=== PATIENT | female | born 1975 | race African-American/Black ===

== ENCOUNTER → 2016-07-12 | Outpatient (CLI) | payer OTHER ==
[2016-07-12 10:41] LABS: CHLORIDE,CL 108 mmol/L (98-110); SODIUM,NA 140 mmol/L (136-146)
== END ==
LOC: MW.CHFP 09:40
PROVIDERS: ATTEND Nurse Practitioner Family
DX: Z00.00 Encounter for general adult medical examination without abnormal findings (principal); E11.9 Type 2 diabetes mellitus without complications; R80.9 Proteinuria, unspecified
CPT/HCPCS: 36415; 80053; 80061; 82044; 83036

== ENCOUNTER 2018-07-07 08:10 | Day surgery (SDC) | payer OTHER ==
[~2018-07-07 08:10] MED LIST: Lactated Ringers 1,000 ML IV SCH
--- NOTE | 2018-07-07 09:21 | PCM.PREANE ---
Preanesthetic Assessment - Anesthesia/Transfusion/Family Hx Anesthesia History: Prior Anesthesia Without Reaction Family History of Anesthesia Reaction: No Transfusion History: No Prior Transfusion(s) Intubation History: Unknown - Review of Systems General: No Symptoms Pulmonary: No Symptoms Cardiovascular: No Symptoms Gastrointestinal: Abdominal Pain Neurological: No Symptoms Other: Reports: None - Physical Assessment NPO Status Date: 07/06/18 O2 Sat by Pulse Oximetry: 97 Respiratory Rate: 18 Vital Signs: Last Vital Signs Temp 35.9 C 07/07/18 08:35 Pulse 110 H 07/07/18 08:35 Resp 18 07/07/18 08:35 BP 131/77 07/07/18 08:35 Pulse Ox 97 07/07/18 08:35 Height: 1.5 m Weight: 95.708 kg ASA Class: 3 Mental Status: Alert & Oriented x3 Airway Class: Mallampati = 2 Dentition: Reports: Normal Dentition Thyro-Mental Finger Breadths: 3 Mouth Opening Finger Breadths: 3 ROM/Head Extension: Full Lungs: Clear to Auscultation, Normal Respiratory Effort Cardiovascular: Regular Rate, Regular Rhythm - Lab Values: Laboratory Last Values Urine HCG, Qual NEGATIVE (NEGATIVE) 07/07/18 08:35 - Allergies Allergies/Adverse Reactions: Allergies Allergy/AdvReac Type Severity Reaction Status Date / Time chocolate flavor Allergy Airway Verified 07/04/18 13:18 Tightness Penicillins Allergy Other Verified 07/04/18 13:18 red pepper Allergy Airway Uncoded 07/04/18 13:18 Tightness - Blood Blood Available: No - Anesthesia Plan Pre-Op Medication Ordered: None - Acknowledgements Anesthesia Type Planned: MAC Pt an Appropriate Candidate for the Planned Anesthesia: Yes Alternatives and Risks of Anesthesia Discussed w Pt/Guardian: Yes Pt/Guardian Understands and Agrees with Anesthesia Plan: Yes PreAnesthesia Questionnaire HEENT History: Reports: Allergic Rhinitis, Other (See Below) Other HEENT History: uses glasses for driving Cardiovascular History: Reports: Hypertension Gastrointestinal History: Reports: GERD Genitourinary History: Reports: Renal Calculus 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: Neurological History: Reports: Concussion Endocrine/Metabolic History: Reports: Diabetes, Type II, IDDM, Obesity/BMI 30+ - Past Surgical History HEENT Surgical History: Reports: Adenoidectomy, Naso-Sinus Surgery, Tonsillectomy Female Surgical History: Reports: Section Musculoskeletal Surgical History: Reports: Arthroscopic Knee (right knee) - SUBSTANCE USE Smoking Status *Q: Never Smoker Recreational Drug Use History: No - HOME MEDS Home Medications: Home Meds Azelastine HCl 1 spray NASBOTH QPM 07/04/18 [History] Diclofenac Sodium [Voltaren] 75 mg PO ASDIRECTED PRN 07/04/18 [History] Fluticasone Propionate [Flonase Allergy Relief] 1 spray NASBOTH QAM 07/04/18 [ History] Insulin Detemir [Levemir Flextouch] 30 unit SQ BEDTIME 07/04/18 [History] Losartan/Hydrochlorothiazide [Losartan-HCTZ 100-12.5 MG] 1 tab PO QAM 07/04/18 [ History] SitaGLIPtin [Januvia] 100 mg PO QAM 07/04/18 [History] metFORMIN [Glucophage] 500 mg PO BIDMEALS 07/04/18 [History] - CURRENT (IN HOUSE) MEDS Current Meds: Current Medications Lactated Ringer's (Ringers, Lactated) 1,000 mls @ 125 mls/hr IV ASDIRECTED JIMI Last Admin: 07/07/18 08:45 Dose: 125 mls/hr
[2018-07-07] MEDS ORDERED: Ondansetron 4 MG/2 ML SDV ONE (11:36)
[2018-07-07] MEDS ORDERED: Propofol 200 MG/20 ML SDV ONE (11:36)
[2018-07-07] MEDS ORDERED: fentaNYL 100 MCG/2 ML SDV ONE (11:37)
[2018-07-07] MEDS ORDERED: Midazolam 1 MG/ML 2 ML SDV ONE (11:37)
--- NOTE | 2018-07-07 11:58 | PCM.OPNOTE ---
- General Post-Op/Procedure Note Date of Surgery/Procedure: 07/07/18 Operative Procedure(s): egd w bx Findings: see dict [id number] Pre Op Diagnosis: gerd Post-Op Diagnosis: Same Anesthesia Technique: Moderate Sedation Primary Surgeon: Kasi Gupta Pathology: sent Complications: None Condition: Good
--- NOTE | 2018-07-07 12:38 | PCM.POSTAN ---
POST ANESTHESIA ASSESSMENT - MENTAL STATUS Mental Status: Alert, Oriented - RESPIRATORY Respiratory Status: Respiratory Rate WNL, Airway Patent, O2 Saturation Stable - CARDIOVASCULAR CV Status: Pulse Rate WNL, Blood Pressure Stable - GASTROINTESTINAL GI Status: No Symptoms - PAIN Pain Score: 0 - POST OP HYDRATION Hydration Status: Adequate & Stable - OBSERVATIONS Free Text/Narrative:: no anesthesia problems, patient skipped recovery room phase of postoperative care
--- NOTE | 2018-07-07 15:31 | OR ---
SURGEON: Kasi Gupta MD DATE OF PROCEDURE: 07/07/2018 PREOPERATIVE DIAGNOSIS: Gastroesophageal reflux disease. POSTOPERATIVE DIAGNOSIS: Gastroesophageal reflux disease. PROCEDURE PERFORMED: Esophagogastroduodenoscopy with biopsy. COMPLICATION: None. PROCEDURE IN DETAIL: EGD: The patient was taken to the endoscopy room, and with the MANUFACTURING PROJECT ENGINEER, Diprivan was administered. A well-lubricated EGD scope was gently inserted through the oropharynx, down the esophagus, passing through the gastroesophageal junction, into the stomach. The mucosa was examined upon the passage. Any etiology will be noted. Once in the stomach, we continued to advance to the distal antrum, passed through the pylorus into the second portion of the duodenum. Again, the mucosa was examined for any abnormality and etiology. The scope was then retrieved back to the stomach and then retroflexed to look at the fundus of the stomach. If a biopsy was indicated, we will biopsy the antrum, body, and gastroesophageal junction. The air will be sucked out while the scope is retrieved to reduce the patient's discomfort. The patient tolerated the procedure well. There were no intraoperative complications. Dr. Gupta was present through the whole procedure. Prior to surgery, a time-out had been called, the patient identified, procedure identified and antibiotic administered. FINDINGS: 1. The patient is easily sedated with MANUFACTURING PROJECT ENGINEER and Diprivan. The patient is soundly snoring. 2. Oropharynx and proximal esophagus are free of disease. No inflammation, stricture, ulceration, or varicosity. Distal esophagus shows flame-like salmon-colored change consistent with moderate amount of GERD, and stomach rugae is normal in appearance. There is quite a few food particle, I mean it is not solid food, but there is food particle and food residual in the stomach and consistent with some degree of gastroparesis. Antrum was mildly inflamed. Duodenum was grossly normal, but with a patch of white color such as possible food after midnight. Retroflexed look at the fundus of stomach, there is no hiatal hernia. Biopsy done at antrum, body, GE junction at 40 and sucked out the gas while scope pulling out. CARLOS / BALDO /[id number]
== END 2018-07-07 12:38 | disposition home or self-care (01) ==
LOC: MW.SDS 08:10
PROVIDERS: ATTEND Surgery
DX: K29.00 Acute gastritis without bleeding (principal); K29.50 Unspecified chronic gastritis without bleeding; K20.9 Esophagitis, unspecified; K21.9 Gastro-esophageal reflux disease without esophagitis; I10 Essential (primary) hypertension; E11.9 Type 2 diabetes mellitus without complications; M17.11 Unilateral primary osteoarthritis, right knee; E66.9 Obesity, unspecified; Z68.41 Body mass index [BMI] 40.0-44.9, adult; Z88.0 Allergy status to penicillin; Z91.018 Allergy to other foods; Z91.02 Food additives allergy status; Z79.51 Long term (current) use of inhaled steroids; Z79.4 Long term (current) use of insulin; Z79.899 Other long term (current) drug therapy
CPT/HCPCS: 43239; 81025; 82962; J2001; J2250; J2405; J2704; J3010; J7120; 88305; 88312

== ENCOUNTER 2018-09-08 06:21 | Day surgery (SDC) | payer OTHER ==
[2018-09-08] MEDS ORDERED: fentaNYL 100 MCG/2 ML SDV ONE (07:01)
[2018-09-08] MEDS ORDERED: Propofol 200 MG/20 ML SDV ONE ×2 (07:01→08:14)
[2018-09-08] MEDS ORDERED: Midazolam 1 MG/ML 2 ML SDV ONE (07:01)
--- NOTE | 2018-09-08 07:01 | PCM.PREANE ---
Preanesthetic Assessment - Anesthesia/Transfusion/Family Hx Anesthesia History: Prior Anesthesia Without Reaction Family History of Anesthesia Reaction: No Transfusion History: No Prior Transfusion(s) Intubation History: Unknown - Review of Systems General: No Symptoms Pulmonary: No Symptoms Cardiovascular: No Symptoms Gastrointestinal: No Symptoms, Other (recent h/o H. pylori, screening colonoscopy) Neurological: No Symptoms Other: Reports: None - Physical Assessment O2 Sat by Pulse Oximetry: 97 Respiratory Rate: 18 Vital Signs: Last Vital Signs Temp 36.1 C 09/08/18 06:35 Pulse 107 H 09/08/18 06:35 Resp 18 09/08/18 06:35 BP 143/93 H 09/08/18 06:35 Pulse Ox 97 09/08/18 06:35 Height: 1.5 m Weight: 94.801 kg ASA Class: 2 Mental Status: Alert & Oriented x3 Airway Class: Mallampati = 2 Dentition: Reports: Normal Dentition Thyro-Mental Finger Breadths: 3 Mouth Opening Finger Breadths: 3 ROM/Head Extension: Full Lungs: Clear to Auscultation, Normal Respiratory Effort Cardiovascular: Regular Rate, Regular Rhythm - Lab Values: Laboratory Last Values POC Glucose 163 mg/dL (60-110) H 09/08/18 06:44 Urine HCG, Qual NEGATIVE (NEGATIVE) 09/08/18 06:28 - Allergies Allergies/Adverse Reactions: Allergies Allergy/AdvReac Type Severity Reaction Status Date / Time chocolate flavor Allergy Airway Verified 09/04/18 16:41 Tightness Penicillins Allergy Other Verified 09/04/18 16:41 red pepper Allergy Airway Uncoded 09/04/18 16:41 Tightness - Blood Blood Available: No - Anesthesia Plan Pre-Op Medication Ordered: None - Acknowledgements Anesthesia Type Planned: MAC Pt an Appropriate Candidate for the Planned Anesthesia: Yes Alternatives and Risks of Anesthesia Discussed w Pt/Guardian: Yes Pt/Guardian Understands and Agrees with Anesthesia Plan: Yes PreAnesthesia Questionnaire HEENT History: Reports: Other (See Below) Other HEENT History: wears glasses Cardiovascular History: Reports: Hypertension Respiratory History: Reports: TB (h/o TB in middle school) Gastrointestinal History: Reports: GERD, Helicobacter Pylori Genitourinary History: Reports: Renal Calculus 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: Reports: Endometriosis, Neurological History: Reports: Concussion Endocrine/Metabolic History: Reports: Diabetes, Type II (A1C is 7.5 according to the patient, glucose level today 165), IDDM, Obesity/BMI 30+ - Past Surgical History HEENT Surgical History: Reports: Adenoidectomy, Tonsillectomy GI Surgical History: Reports: EGD Female Surgical History: Reports: Section Musculoskeletal Surgical History: Reports: Arthroscopic Knee - SUBSTANCE USE Smoking Status *Q: Never Smoker Recreational Drug Use History: No - HOME MEDS Home Medications: Home Meds Azelastine HCl 1 spray NASBOTH BID 07/04/18 [History] Diclofenac Sodium [Voltaren] 75 mg PO ASDIRECTED PRN 07/04/18 [History] Insulin Detemir [Levemir Flextouch] 30 unit SQ BEDTIME 07/04/18 [History] metFORMIN [Glucophage] 500 mg PO BIDMEALS 07/04/18 [History] EPINEPHrine [Epipen] 0.3 mg IM ASDIRECTED PRN 09/04/18 [History] Fluticasone Propionate [Flonase Allergy Relief] 1 spray NASBOTH ASDIRECTED 09/04 [History] Losartan/Hydrochlorothiazide [Losartan-HCTZ 50-12.5 MG] 1 tab PO QAM 09/04/18 [ History] Norgestrel-Ethinyl Estradiol [Elinest-28 Tablet] 1 tab PO DAILY 09/04/18 [ History] Ozempic 0.5 mg SQ WEEKLY 09/04/18 [History] - CURRENT (IN HOUSE) MEDS Current Meds: Current Medications Lactated Ringer's (Ringers, Lactated) 1,000 mls @ 125 mls/hr IV ASDIRECTED JIMI Last Admin: 09/08/18 06:45 Dose: 125 mls/hr
--- NOTE | 2018-09-08 08:40 | PCM.OPNOTE ---
- General Post-Op/Procedure Note Date of Surgery/Procedure: 09/08/18 Operative Procedure(s): colonoscopy Findings: see dict [id number] Pre Op Diagnosis: scrn colonoscopy Post-Op Diagnosis: diverticulosis Primary Surgeon: Kasi Gupta Complications: None Condition: Good
--- NOTE | 2018-09-08 11:22 | OR ---
SURGEON: Kasi Gupta MD DATE OF PROCEDURE: 09/08/2018 PREOPERATIVE DIAGNOSIS: Screening colonoscopy. POSTOPERATIVE DIAGNOSIS: Diverticulosis. PROCEDURE PERFORMED: Colonoscopy. DESCRIPTION OF PROCEDURE: The patient was taken to the endoscopy room. A time out was called, patient identified, and procedure identified. Diprivan was then administrated. Patient went from awake to sleep, hearing doctor talking or door closing is normal. Perineum inspection and digital examination were then performed. A well- lubricated colonoscope was gently inserted through the rectum, advanced past the rectosigmoid junction, the descending colon, splenic flexure, transverse colon, hepatic flexure, ascending colon, arrived to the cecum. Cecum was identified as dictated in the finding. Then the scope was carefully withdrawn while attention was paid to the mucosal surface for any abnormality. Air will be sucked out during the scope withdrawal. At the rectum, retroflexed to examine any rectal diseases, fistula or hemorrhoids. Patient tolerated procedure well. There were no intraoperative complications, and Dr. Gupta was present throughout the whole procedure. FINDINGS: 1. The patient easily sedated with SALES OFFICE ASSISTANT and Diprivan, the patient is soundly snoring. 2. Bowel prep is excellent, absolutely not a speck of liquid stool or anything at all. Did a very good job in bowel prep. 3. Colon was a little bit redundant on the left, on the sigmoid colon, requiring several maneuvers in order to get to the cecum. Cecum indicated by ileocecal fold, appendiceal orifice, and one-to-one indentation. Light immittance is not observed. Mucosa was irrigated every now and then to look at the colon. Very little irrigation, and while the scope pulling out, mucosa examined. The patient has mild diverticulosis on the right colon, right around the cecum area, just a few of them. No signs or symptoms of diverticulitis, polyp, mass, growth, inflammation, AV malformation, bleeding, none of those. The patient has mild external hemorrhoid and mild internal hemorrhoid. The patient would benefit from repeat colonoscopy in 10 years from today or if clinically indicated otherwise. CARLOS / BALDO /[id number]
== END 2018-09-08 09:20 | disposition home or self-care (01) ==
LOC: MW.SDS 06:21
PROVIDERS: ATTEND Surgery
DX: Z12.11 Encounter for screening for malignant neoplasm of colon (principal); K57.30 Diverticulosis of large intestine without perforation or abscess without bleeding; R63.4 Abnormal weight loss; Z68.41 Body mass index [BMI] 40.0-44.9, adult; I10 Essential (primary) hypertension; K21.9 Gastro-esophageal reflux disease without esophagitis; E11.9 Type 2 diabetes mellitus without complications; Z88.0 Allergy status to penicillin; Z91.018 Allergy to other foods; Z79.1 Long term (current) use of non-steroidal anti-inflammatories (NSAID); Z79.3 Long term (current) use of hormonal contraceptives; Z79.4 Long term (current) use of insulin; Z79.51 Long term (current) use of inhaled steroids; Z79.899 Other long term (current) drug therapy
CPT/HCPCS: 45378; 81025; 82962; J2250; J2704; J3010; J7120; 00812

== ENCOUNTER 2019-01-12 12:45 | Emergency (ER) | payer OTHER ==
[2019-01-12] MEDS ORDERED: Ondansetron 4 MG Tab.DIS PO ONE (13:09)
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
== END 2019-01-12 15:00 | disposition home or self-care (01) ==
LOC: MW.ED 12:45
DX: M54.2 Cervicalgia (principal); M54.5 Low back pain; I10 Essential (primary) hypertension; E11.9 Type 2 diabetes mellitus without complications; E66.9 Obesity, unspecified; Z68.41 Body mass index [BMI] 40.0-44.9, adult; Z88.0 Allergy status to penicillin; Z91.018 Allergy to other foods; Z79.84 Long term (current) use of oral hypoglycemic drugs; Z79.899 Other long term (current) drug therapy; V49.59XA Passenger injured in collision with other motor vehicles in traffic accident, initial encounter
CPT/HCPCS: 72040; 72100; 96372; 99284; A9270; J2360

== ENCOUNTER 2019-01-15 10:28 | Emergency (ER) | payer OTHER ==
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
[2019-01-15] MEDS ORDERED: Acetaminophen/HYDROcodone 325-5 MG Tab PO ONE (10:51)
[2019-01-15] MEDS ORDERED: Ondansetron 4 MG Tab.DIS PO ONE (10:51)
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
== END 2019-01-15 12:43 | disposition home or self-care (01) ==
LOC: MW.ED 10:28
DX: R51 Headache (principal); M79.10 Myalgia, unspecified site; I10 Essential (primary) hypertension; Z88.0 Allergy status to penicillin; Z88.9 Allergy status to unspecified drugs, medicaments and biological substances; Z79.899 Other long term (current) drug therapy; Z79.4 Long term (current) use of insulin; V89.2XXS Person injured in unspecified motor-vehicle accident, traffic, sequela
CPT/HCPCS: 70450; 99284; A9270; 99283

== ENCOUNTER 2019-09-13 08:15 | Day surgery (SDC) | payer OTHER ==
[~2019-09-13 08:15] MED LIST changes: +Bupivacaine 0.5% 30 ML SDV ONE; +Lidocaine 2% Jelly 30 ML Tube ONE; +Sodium Chloride 0.9% 10 ML SDV IV PRN; +Sodium Chloride 0.9% 10 ML Syringe FLUSH PRN; +Sodium Chloride 0.9% 2.5 ML Syringe FLUSH PRN; +cefOXitin 2 GM in Premix Bag 1 BAG IV ONE
[2019-09-13] MEDS ORDERED: fentaNYL 100 MCG/2 ML SDV ONE ×2 (08:44→09:50)
[2019-09-13] MEDS ORDERED: Midazolam 1 MG/ML 2 ML SDV ONE (08:44)
[2019-09-13] MEDS ORDERED: Propofol 200 MG/20 ML SDV ONE (08:44)
[2019-09-13] MEDS ORDERED: Lidocaine 2% 5 ML SDV ONE (08:44)
[2019-09-13] MEDS ORDERED: Albuterol 0.083% 2.5 MG/3 ML Neb Soln NEB PRN (08:55)
[2019-09-13] MEDS ORDERED: 50% Dextrose in Water 50 ML Syringe IVPUSH PRN (08:55)
[2019-09-13] MEDS ORDERED: fentaNYL 100 MCG/2 ML SDV IVPUSH PRN (08:55)
[2019-09-13] MEDS ORDERED: EPINEPHrine 1:10,000 1 MG/10 ML Syringe IVPUSH PRN (08:55)
[2019-09-13] MEDS ORDERED: Naloxone 0.4 MG/ML Syringe IVPUSH PRN (08:55)
[2019-09-13] MEDS ORDERED: Atropine 0.1 MG/ML 10 ML Syringe IVPUSH PRN ×2 (08:55)
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
[2019-09-13] MEDS ORDERED: cefOXitin 1 GM Vial ONE (09:48)
[2019-09-13] MEDS ORDERED: Sodium Chloride 0.9% 20 ML ONE (09:48)
[2019-09-13] MEDS ORDERED: 50% Dextrose in Water 50 ML Syringe ONE (09:52)
--- NOTE | 2019-09-13 10:27 | PCM.OPNOTE ---
- General Post-Op/Procedure Note Date of Surgery/Procedure: 09/13/19 Operative Procedure(s): Hemorrhoidectomy Findings: Right anterior grade 4 hemorrhoid Pre Op Diagnosis: Grade 4 hemorrhoids Post-Op Diagnosis: same Anesthesia Technique: Local, MAC Primary Surgeon: Jen Schwarz Fluid Replacement, Intraop: 1,000 EBL in mLs: 5 Condition: Good
--- NOTE | 2019-09-13 10:36 | PCM.POSTAN ---
POST ANESTHESIA ASSESSMENT - MENTAL STATUS Mental Status: Alert, Oriented - VITAL SIGNS Vital Signs: Last Vital Signs Temp 35.9 C L 09/13/19 10:20 Pulse 111 H 09/13/19 10:30 Resp 19 09/13/19 10:30 BP 121/75 09/13/19 10:30 Pulse Ox 94 L 09/13/19 10:30 - RESPIRATORY Respiratory Status: Respiratory Rate WNL, Airway Patent, O2 Saturation Stable - CARDIOVASCULAR CV Status: Pulse Rate WNL, Blood Pressure Stable - GASTROINTESTINAL GI Status: No Symptoms - PAIN Pain Score: 0 - POST OP HYDRATION Hydration Status: Adequate & Stable - OBSERVATIONS Free Text/Narrative:: No anesthesia problems
[2019-09-13] MEDS ORDERED: HYDROmorphone 2 MG/ML Syringe IVPUSH ONE (11:02)
[2019-09-13] MEDS ORDERED: Ketorolac 30 MG/ML SDV IVPUSH ONE (11:02)
--- NOTE | 2019-09-13 12:00 | PCM48HPAN ---
Post Anesthesia Note - EVALUATION WITHIN 48HRS OF ANESTHETIC Vital Signs in Normal Range: Yes Patient Participated in Evaluation: Yes Respiratory Function Stable: Yes Airway Patent: Yes Cardiovascular Function Stable: Yes Hydration Status Stable: Yes Pain Control Satisfactory: Yes Nausea and Vomiting Control Satisfactory: Yes Mental Status Recovered: Yes Vital Signs: Last Vital Signs Temp 36.2 C 09/13/19 10:35 Pulse 106 H 09/13/19 10:35 Resp 16 09/13/19 10:35 BP 117/68 09/13/19 10:35 Pulse Ox 98 09/13/19 10:35 - COMMENTS/OBSERVATIONS Free Text/Narrative:: No anesthesia problems
--- NOTE | 2019-09-13 18:02 | OR ---
SURGEON: JEN SCHWARZ MD DATE OF PROCEDURE: 09/13/2019 PREOPERATIVE DIAGNOSIS: Grade 4 hemorrhoid. POSTOPERATIVE DIAGNOSIS: Grade 4 hemorrhoid. PROCEDURE PERFORMED: Single column hemorrhoidectomy. PRIMARY SURGEON: Jen Schwarz MD ANESTHESIA: MAC, local. FLUIDS: 1000 mL of crystalloid. ESTIMATED BLOOD LOSS: 5 mL. FINDINGS: Right anterior grade 4 hemorrhoid. COMPLICATIONS: None. INDICATIONS: The patient is a 44-year-old female who presented to my clinic with a prolapsed and inflamed right anterior hemorrhoid. The decision was made to excise this. Due to COVID-19, the patient's case was slightly delayed. The hemorrhoidal tissue is no longer inflamed, but it is still prolapsed, and the patient desires excision. I explained the procedure, expected perioperative course, wound cares afterwards, and the risks to the patient. She verbalized understanding and wishes to proceed. PROCEDURE IN DETAIL: The patient was brought into the OR and placed on the OR table in a left lateral decubitus position. A time-out was completed verifying the patient's name, age, date of , allergies, and procedure to be performed. Monitored anesthesia care was induced. The patient was appropriately padded and secured to the table. The buttocks and anoderm were then prepped and draped in usual standard fashion. A digital rectal exam was performed. This exam revealed a grade 4 prolapsing right anterior hemorrhoid. The patient did have what appeared to be a grade 2 right posterior hemorrhoid as well. The decision was made to remove the grade 4 hemorrhoid only. A bivalve proctoscope was inserted into the anus. I inspected the remainder of the anoderm which all appeared normal. I anesthetized the anoderm circumferentially with 0.5% Marcaine plain. I then placed a bivalve proctoscope into the anal canal to expose my hemorrhoidal tissue. The right anterior hemorrhoidal column was elevated with a Lidia clamp and needle-tip cautery was used to excise this hemorrhoid from the surrounding tissue using limited directed cauterization. The hemorrhoid was then passed off the field and sent to pathology labeled as hemorrhoidal tissue. I then closed the mucosa in the anoderm with a running locking 2-0 chromic suture. This was transitioned to a simple stitch on the anoderm. The stitch was then brought back upon itself and tied within the anal canal. The area was then irrigated with normal saline. It appeared to be hemostatic. 4 x 4 fluffs and sterile underwear were then placed. All counts were complete and correct at the end of the case. The patient tolerated the procedure well and was taken to the PACU in stable condition. JACKIE BLAND /[id number]
== END 2019-09-13 13:30 | disposition home or self-care (01) ==
LOC: MW.SDS 08:15
PROVIDERS: ATTEND Surgery
DX: K64.3 Fourth degree hemorrhoids (principal); E11.9 Type 2 diabetes mellitus without complications; K21.9 Gastro-esophageal reflux disease without esophagitis; I10 Essential (primary) hypertension; F41.9 Anxiety disorder, unspecified; F32.9 Major depressive disorder, single episode, unspecified; E66.9 Obesity, unspecified; Z79.1 Long term (current) use of non-steroidal anti-inflammatories (NSAID); Z88.0 Allergy status to penicillin; Z79.899 Other long term (current) drug therapy; Z79.4 Long term (current) use of insulin; Z68.39 Body mass index [BMI] 39.0-39.9, adult; Z91.02 Food additives allergy status
CPT/HCPCS: 46255; 81025; 82962; J0694; J1885; J2001; J2250; J2704; J3010; J3490; J7120; 00902; 88304

== ENCOUNTER 2021-01-01 10:58 | Emergency (ER) | payer OTHER ==
--- NOTE | 2021-01-01 12:18 | EDM.PDOC ---
ED HPI GENERAL MEDICAL PROBLEM - General Chief Complaint: Lower Extremity Injury/Pain Stated Complaint: TRIP AND FALL Time Seen by Provider: 01/01/21 12:13 Source of Information: Reports: Patient History Limitations: Reports: No Limitations - History of Present Illness INITIAL COMMENTS - FREE TEXT/NARRATIVE: HISTORY AND PHYSICAL: History of present illness: Patient is a 45-year-old female who presents to the emergency room with complaints of right medial ankle pain and right lateral rib pain. She states she tripped and fell landing on her right side. Denies hitting her head or having any loss of consciousness. Offers no other bodily injury. Offers no systemic complaints. Review of systems: As per history of present illness and below otherwise all systems reviewed and negative. Past medical history: As per history of present illness and as reviewed below otherwise noncontributory. Surgical history: As per history of present illness and as reviewed below otherwise noncontributory. Social history: See social history for further information Family history: As per history of present illness and as reviewed below otherwise noncontributory. Physical exam: General: Well developed and well nourished. Alert and orientated x 3. Nontoxic in appearance and in no acute distress. Vital signs are stable and have been reviewed by me. Nursing notes were reviewed. HEENT: Atraumatic, nontender, normocephalic, pupils equal and reactive bilaterally, negative for conjunctival pallor or scleral icterus, mucous membranes moist, neck supple, nontender, trachea midline. No drooling or trismus noted. No meningeal signs. No hot potato voice noted. Lungs: Clear to auscultation bilaterally. No wheezes, rales, or rhonchi. Right lateral lower rib tenderness to palpation. Normal work of breathing, no accessory muscles used. Heart: S1S2, regular rate and rhythm without overt murmur, gallops, or rubs. No JVD. No peripheral edema Abdomen: Soft, nondistended, nontender. Pelvis: Stable nontender. C-spine/Back: No pinpoint vertebral tenderness upon palpation. No crepitus, step-offs or obvious deformities. Patient is ambulatory into the emergency room without difficulty or deficit. Able to rock back on heels and walk on toes. Denies any urinary or fecal incontinence. Denies any numbness, tingling or saddle paresthesia. No concerns of serious infection, fracture or cord compression, or cauda equina syndrome. Deep tendon reflexes brisk bilaterally. Skin: Intact, warm, dry. No lesions or rashes noted. Hematologic: No petechiae or purpra. Mucosa appropriate color and normal nail bed color and refill. Extremities: Moves all extremities per self without difficulty or deficits with the exception of increased pain with flexion and extension of the right ankle/ foot. Pain with palpation of the medial right malleolus. Strong pedal and pretibial pulses. Cap refill less than 3 seconds, negative for cords or calf pain. Neurovascular unremarkable. Neuro: Awake, alert, oriented. Cranial nerves II through XII unremarkable. Cerebellum unremarkable. Motor and sensory unremarkable throughout. Exam nonfocal. Psychiatric: Mood and affect are appropriate. Normal thought process. Answering questions appropriately. Please note that the patient was seen and evaluated during the 2019 SARS-CoV-2 novel coronavirus pandemic period. Community viral transmission is ongoing at time of this encounter and the emergency department is operating under pandemic response procedures. Medical Decision Making: Rib x-ray is unremarkable. Ankle x-ray shows and acute fracture of the medial malleolus with a small free bone fragment. No other osseous abnormality. Patient placed in a cam walker boot and crutches. I have talked with the patient about today's findings, in addition to providing specific details for plan of care. Reassessment at the time of disposition demonstrates that the patient is in no acute distress. Encourage patient to set up an orthopedic follow-up appointment. The patient is stable for discharge, counseling was provided and we discussed in great detail signs and symptoms that would prompt them to return to the Emergency Department. Medication, follow up and supportive care measures were reviewed and discussed. Voices understanding and is agreeable to plan of care. Denies any further questions or concerns at this time. Diagnostics: Rib x-ray, ankle x-ray Therapeutics: CAM Walker boot, crutches Prescription: [place] Impression: Malleolus fracture, right Rib contusion Fall Plan: 1. You were evaluated today on an emergent basis. Your ankle shows a malleolus fracture. Rest, ice and elevate extremity as able. Use the CAM walker boot and crutches until you follow up with orthopedics. 2. You can alternate Tylenol and ibuprofen as needed for pain and fever management. [place] for moderate to severe pain. This medication may cause drowsiness, so do not take while driving or needing to be functioning outside the house. 3. We encourage you to follow up with orthopedics in the next 7-10 days for re- evaluation and further care/management. 4. If your symptoms should worsen, new symptoms develop or any of the signs and symptoms we discussed should arise please return to the emergency room or call 911 (if needed). Definitive disposition and diagnosis as appropriate pending reevaluation and review of above. right foot Pain Score (Numeric/FACES): 10 - Related Data Allergies Allergy/AdvReac Type Severity Reaction Status Date / Time chocolate flavor Allergy Airway Verified 01/01/21 12:20 Tightness Penicillins Allergy Other Verified 01/01/21 12:20 red pepper Allergy Airway Uncoded 09/10/19 10:06 Tightness Home Meds: Home Meds Azelastine HCl 1 spray NASBOTH BID 07/04/18 [History] Diclofenac Sodium [Voltaren] 75 mg PO BID PRN 07/04/18 [History] Insulin Detemir [Levemir Flextouch] 30 unit SQ BEDTIME 07/04/18 [History] EPINEPHrine [Epipen] 0.3 mg IM ASDIRECTED PRN 09/04/18 [History] Fluticasone Propionate [Flonase Allergy Relief] 1 spray NASBOTH ASDIRECTED 09/04/18 [History] Betamethasone Dipropionate 1 applic TOP BID 09/10/19 [History] Calcium Carbonate [Tums] 1 tab.chew CHEW ASDIRECTED PRN 09/10/19 [History] Cholecalciferol (Vitamin D3) [Vitamin D3] 4 tab PO DAILY 09/10/19 [History] Cyclobenzaprine HCl 10 mg PO TID PRN 09/10/19 [History] DULoxetine HCl [Cymbalta] 30 mg PO BID 09/10/19 [History] Empagliflozin [Jardiance] 25 mg PO DAILY 09/10/19 [History] Hydrocodone/Acetaminophen [HYDROcodone-Acetaminophen 5-325 MG] 1 tab PO TID PRN 09/10/19 [History] Hydrocortisone [Hydrocortisone 2.5% Crm] 1 applic RECTAL ASDIRECTED PRN 09/10/19 [History] Lidocaine 1 patch TRDERM ASDIRECTED 09/10/19 [History] Losartan Potassium 50 mg PO DAILY 09/10/19 [History] Ozempic 1 mg SUBCUT WEEKLY 09/10/19 [History] SUMAtriptan succinate [Imitrex] 1 - 2 tab PO ASDIRECTED PRN 09/10/19 [History] hydroCHLOROthiazide [Hydrochlorothiazide] 25 mg PO DAILY 09/10/19 [History] norgestrel-ethinyl estradioL [Cryselle-28 Tablet] 1 tab PO DAILY 09/10/19 [History] polyethylene glycoL 3350 [MiraLAX] 17 gm PO DAILY #1 cont 09/13/19 [Rx] Hydrocodone/Acetaminophen [HYDROcodone-Acetaminophen 5-325 MG] 1 - 2 tab PO Q4HR PRN #30 tablet 01/01/21 [Rx] Past Medical History HEENT History: Reports: Other (See Below) Other HEENT History: wears glasses Cardiovascular History: Reports: Hypertension Respiratory History: Reports: None Gastrointestinal History: Reports: Diverticulosis, GERD, Hemorrhoids, Helicobacter Pylori Genitourinary History: Reports: Renal Calculus [employer] History: Reports: Endometriosis, Musculoskeletal History: Reports: Back Pain, Chronic Neurological History: Reports: Concussion, Migraines Psychiatric History: Reports: Anxiety, Depression Endocrine/Metabolic History: Reports: Diabetes, Type II, Obesity/BMI 30+ (BMI 38.4) Hematologic History: Reports: None Immunologic History: Reports: None Oncologic (Cancer) History: Reports: None Dermatologic History: Reports: None - Past Surgical History Head Surgeries/Procedures: Reports: None HEENT Surgical History: Reports: Adenoidectomy, Naso-Sinus Surgery, Tonsillectomy Cardiovascular Surgical History: Reports: None Respiratory Surgical History: Reports: None GI Surgical History: Reports: Colonoscopy, EGD Female Surgical History: Reports: Section Endocrine Surgical History: Reports: None Neurological Surgical History: Reports: None Musculoskeletal Surgical History: Reports: None, Arthroscopic Knee Oncologic Surgical History: Reports: None Dermatological Surgical History: Reports: None Social & Family History - Family History Family Medical History: No Pertinent Family History Review of Systems - Review of Systems Review Of Systems: Comprehensive ROS is negative, except as noted in HPI. ED EXAM, GENERAL - Physical Exam Exam: See Below (See dictation) Course - Vital Signs Last Recorded V/S: Last Vital Signs Temp 97.1 F 01/01/21 12:21 Pulse 98 09/02/21 12:21 Resp 17 01/01/21 12:21 BP 142/83 H 01/01/21 12:21 Pulse Ox 98 01/01/21 12:21 - Orders/Labs/Meds Orders: Active Orders 24 hr Category Date Time Status DME for Discharge [COMM] Stat Oth 01/01/21 13:49 Ordered Departure - Departure Time of Disposition: 13:47 Disposition: Home, Self-Care 01 Clinical Impression: Fracture of malleolus, right ankle, closed Qualifiers: Encounter type: initial encounter Qualified Code(s): S82.891A - Other fracture of right lower leg, initial encounter for closed fracture Fall Qualifiers: Encounter type: initial encounter Qualified Code(s): W19.XXXA - Unspecified fall, initial encounter Rib contusion Qualifiers: Encounter type: initial encounter Laterality: right Qualified Code(s): S20.211A - Contusion of right front wall of thorax, initial encounter - Discharge Information Prescriptions: Hydrocodone/Acetaminophen [HYDROcodone-Acetaminophen 5-325 MG] 1 - 2 tab PO Q4HR PRN #30 tablet PRN Reason: Pain (Moderate 4-6) Instructions: Ankle Fracture, [id number] Referrals: Irene Johnson NP [Primary Care Provider] - Forms: ED Department Discharge Additional Instructions: The following information is given to patients seen in the emergency department who are being discharged to home. This information is to outline your options for follow-up care. We provide all patients seen in our emergency department with a follow-up referral. The need for follow-up, as well as the timing and circumstances, are variable depending upon the specifics of your emergency department visit. If you don't have a primary care physician on staff, we will provide you with a referral. We always advise you to contact your personal physician following an emergency department visit to inform them of the circumstance of the visit and for follow-up with them and/or the need for any referrals to a consulting specialist. The emergency department will also refer you to a specialist when appropriate. This referral assures that you have the opportunity for follow-up care with a specialist. All of these measure are taken in an effort to provide you with optimal care, which includes your follow-up. Under all circumstances we always encourage you to contact your private physician who remains a resource for coordinating your care. When calling for follow-up care, please make the office aware that this follow-up is from your recent emergency room visit. If for any reason you are refused follow-up, please contact the [facility] Emergency Department at and asked to speak to the emergency department charge nurse. [facility] Specialty Care - Orthopedic Clinic Professional Building [address] [facility], [address] [place] [address] Dr [place], Orthopedist [facility] [address] [place] [address] Orthopedics at [facility] [address] [place] [address] [facility] [address] [place] [address] Thank you for choosing the [facility] emergency department in [place] for your medical needs today. It was a pleasure caring for you. Today you were seen in the emergency department for injuries from fall. 1. You were evaluated today on an emergent basis. Your ankle shows a malleolus fracture. Rest, ice and elevate extremity as able. Use the CAM walker boot and crutches until you follow up with orthopedics. 2. You can alternate Tylenol and ibuprofen as needed for pain and fever management. [place] for moderate to severe pain. This medication may cause drowsiness, so do not take while driving or needing to be functioning outside the house. 3. We encourage you to follow up with orthopedics in the next 7-10 days for re- evaluation and further care/management. 4. If your symptoms should worsen, new symptoms develop or any of the signs and symptoms we discussed should arise please return to the emergency room or call 911 (if needed). Sepsis Event Note (ED) - Focused Exam Vital Signs: Vital Signs Temp Pulse Resp BP Pulse Ox 01/01/21 12:21 97.1 F 98 17 142/83 H 98 - My Orders Last 24 Hours: My Active Orders 01/01/21 13:49 DME for Discharge [COMM] Stat - Assessment/Plan Last 24 Hours: My Active Orders 01/01/21 13:49 DME for Discharge [COMM] Stat
--- NOTE | 2021-01-01 13:41 | CR ---
Indication: Injury and pain Technique: Right ankle 3 views Comparison: None Findings/Impression: Bones: Acute fracture of the medial malleolus with a small free bone fragment. No other osseous abnormality. Joint spaces: Unremarkable. Soft tissues: Unremarkable. Dictated by Justin Herrera MD @ 01/01/2021 1:39:27 PM (Electronically Signed)
--- NOTE | 2021-01-01 13:43 | CR ---
INDICATION: Trauma, fall with pain TECHNIQUE: Chest and right ribs 3 views. COMPARISON: 09/23/2020 FINDINGS: Cardiovascular and mediastinum: Heart size and vasculature are normal in caliber and appearance. Mediastinum is within normal limits. Lungs and pleural spaces: Lungs are clear. No sign of infiltrate or mass. No sign of pleural effusion. No pneumothorax. Bones and soft tissues: Detailed oblique images of the right ribs demonstrate no fractures or bone lesions. IMPRESSION: Unremarkable chest and right ribs. Dictated by Justin Herrera MD @ 01/01/2021 1:42:37 PM (Electronically Signed)
== END 2021-01-01 14:44 | disposition home or self-care (01) ==
LOC: MW.ED 10:58
DX: S82.891A Other fracture of right lower leg, initial encounter for closed fracture (principal); S20.211A Contusion of right front wall of thorax, initial encounter; K21.9 Gastro-esophageal reflux disease without esophagitis; I10 Essential (primary) hypertension; E11.9 Type 2 diabetes mellitus without complications; E66.9 Obesity, unspecified; Z68.30 Body mass index [BMI] 30.0-30.9, adult; Z79.4 Long term (current) use of insulin; Z79.899 Other long term (current) drug therapy; W01.0XXA Fall on same level from slipping, tripping and stumbling without subsequent striking against object, initial encounter
CPT/HCPCS: 71101-26-RT; 71101-RT; 73610-26-RT; 73610-RT; 99283-25